=== PATIENT | male | born 1995 | race Caucasian/White ===

== ENCOUNTER 2019-01-09 08:39 | Emergency (ER) | payer SELFPAY ==
[~2019-01-09] VITALS: Ht 177.8 cm; Wt 91.0 kg
[2019-01-09] MEDS ORDERED: IBUPROFEN 800MG TABLET PO ONE (09:00)
[2019-01-09 09:16] LABS: BASOPHILS % 0.7 % (0.0-2.0); EOSINOPHILS % 0.3 % (0.0-5.0); HEMATOCRIT. 41.9 % (42.0-52.0); HEMOGLOBIN. 14.3 g/dL (14.0-18.0); LYMPHOCYTES % 16.7 % (20.0-50.0); MEAN CORPUSCULAR HEMOGLOBIN 30.1 pg (28.0-32.0); MEAN CORPUSCULAR VOLUME 87.9 fL (80.0-94.0); MEAN PLATELET VOLUME 8.8 fl (7.4-10.4); MONOCYTES % 6.8 % (2.0-8.0); NEUTROPHILS % 75.5 % (40.0-76.0); PLATELET 226 x1000/uL (130-400); RED BLOOD CELL COUNT 4.76 mill/uL (4.7-6.1); RED CELL DISTRIBUTION WIDTH 12.6 % (11.6-14.6)
[2019-01-09 09:21] LABS: CHLORIDE 107 mEq/L (98-107)
[2019-01-09 09:22] VITALS: BP 128/69
== END 2019-01-09 10:12 | disposition home or self-care (01) ==
LOC: ER 08:39
DX: F41.9 Anxiety disorder, unspecified (principal); R07.89 Other chest pain; R03.0 Elevated blood-pressure reading, without diagnosis of hypertension; I49.9 Cardiac arrhythmia, unspecified; Z98.890 Other specified postprocedural states
CPT/HCPCS: 36415; 71045; 80048; 84484; 93005; 99284

== ENCOUNTER 2019-01-09 10:57 | Emergency (ER) | payer SELFPAY ==
[~2019-01-09] VITALS: Ht 182.9 cm; Wt 100.0 kg
[2019-01-09 11:18] VITALS: BP 120/71
== END 2019-01-09 11:20 | disposition left against medical advice (07) ==
LOC: ER 10:57
DX: R07.9 Chest pain, unspecified (principal); F41.9 Anxiety disorder, unspecified; I49.9 Cardiac arrhythmia, unspecified
CPT/HCPCS: 93005; 99283

== ENCOUNTER 2019-01-12 13:00 | Emergency (ER) | payer OTHER ==
[~2019-01-12] VITALS: Ht 172.7 cm; Wt 81.0 kg
[2019-01-12 14:06] VITALS: BP 130/88
== END 2019-01-12 14:11 | disposition home or self-care (01) ==
LOC: ER 13:00
DX: R07.89 Other chest pain (principal); J06.9 Acute upper respiratory infection, unspecified; F41.9 Anxiety disorder, unspecified; R01.1 Cardiac murmur, unspecified; F15.10 Other stimulant abuse, uncomplicated
CPT/HCPCS: 93005; 99283

== ENCOUNTER 2024-04-28 18:22 | Emergency (ER) | payer MEDICAID, OTHER ==
[2024-04-28 18:24] VITALS: PULSE 87
== END 2024-04-28 19:07 | disposition left against medical advice (07) ==
LOC: ER 18:22
DX: Z04.1 Encounter for examination and observation following transport accident (principal); Z53.21 Procedure and treatment not carried out due to patient leaving prior to being seen by health care provider